=== PATIENT | female | born 1955 | race Caucasian/White ===

== ENCOUNTER → 2023-08-10 07:30 | Outpatient (REF) | payer OTHER, SELFPAY | LOC: WDC 07:30 | PROVIDERS: ATTENDING PHYSICIAN Family Medicine | DX: M85.80 Other specified disorders of bone density and structure, unspecified site (principal); Z12.31 Encounter for screening mammogram for malignant neoplasm of breast | CPT/HCPCS: 77063; 77067; 77080 ==

== ENCOUNTER → 2023-11-08 07:11 | Outpatient (REF) | payer OTHER, SELFPAY | LOC: RAD 07:11 | PROVIDERS: ATTENDING PHYSICIAN Family Medicine | DX: M25.552 Pain in left hip (principal) | CPT/HCPCS: 73502 ==

== ENCOUNTER → 2024-08-27 18:54 | Outpatient (REF) | payer OTHER, SELFPAY | LOC: WDC 18:54 | PROVIDERS: ATTENDING PHYSICIAN Family Medicine | DX: Z12.31 Encounter for screening mammogram for malignant neoplasm of breast (principal) | CPT/HCPCS: 77063; 77067 ==

== ENCOUNTER 2025-04-09 05:45 | Day surgery (SDC) | payer OTHER, SELFPAY ==
[2025-03-26 09:37] LABS: Hematocrit 42.1 % (37.0-47.0); Hemoglobin 14.1 g/dL (12.0-16.0); Mean Corp Hgb Conc. 33.5 g/dL (33.0-37.0); Mean Corpuscular Volume 91.9 fL (81.0-99.0); Platelet Count 334 10^3/uL (130-400); Red Cell Dist. Width 13.0 % (11.5-14.5)
[2025-03-26 10:01] LABS: Blood Urea Nitrogen 23 mg/dl (7-17); Calcium 9.4 mg/dl (8.4-10.2); Carbon Dioxide 29 mmol/L (22-30); Chloride 104 mmol/L (98-107); Glucose 89 mg/dl (70-99); Potassium 4.9 mmol/L (3.5-5.1); Sodium 139 mmol/L (135-145); eGFR > 60.00
[2025-03-26 14:02] VITALS: BMI 25.2
[2025-04-09] VITALS (12 sets, daily range): BP systolic 119–159; BP diastolic 66–84; BMI 25.2
[2025-04-09] MEDS: HEPARIN 5000 UNITS SC (06:27)
[2025-04-09] MEDS: NORMOSOL-R/PLASMALYTE-A 1000 IV (06:27)
[2025-04-09] MEDS: DILAUDID 0.25 MG IV (10:34)
[2025-04-09] MEDS: TYLENOL 650 MG PO (15:20)
== END 2025-04-09 15:28 | disposition home or self-care (01) ==
LOC: SDS 05:45
PROVIDERS: ATTENDING PHYSICIAN Obstetrics & Gynecology; FAMILY PHYSICIAN Family Medicine
DX: N81.2 Incomplete uterovaginal prolapse (principal); N39.3 Stress incontinence (female) (male); D25.9 Leiomyoma of uterus, unspecified; N83.8 Other noninflammatory disorders of ovary, fallopian tube and broad ligament; N95.8 Other specified menopausal and perimenopausal disorders
CPT/HCPCS: 57425; 58542; 57250; 57288; 36415; 80048; 85027; 86850; 86900; 86901; 88305; 93005; C1763; C1771